=== PATIENT | male | born 1955 | race Caucasian/White ===

== ENCOUNTER 2023-07-20 08:51 | Emergency (ER) | payer BC ==
[2023-07-20 09:32] VITALS: TEMP 97.5; BMI 28.5
[2023-07-20] MEDS ORDERED: ALPRAZolam 0.25 MG TABLET ONE (09:43)
[2023-07-20] MEDS: SODIUM CHLORIDE 500 ML IV STA (09:55)
[2023-07-20] MEDS: ALPRAZolam 0.25 MG TABLET PO ONE (09:55)
[2023-07-20 09:59] LABS: EPI CELLS 1 /uL (0-25.1); HYALINE CASTS 0 /uL (0-3.1); PH,URINE 6.5 (5.0-8.0); URINE APPEARANCE CLEAR; URINE BACTERIA 1 /uL (0-1359); URINE BILIRUBIN NEGATIVE (NEGATIVE); URINE COLOR YELLOW; URINE GLUCOSE (UA) 3+ (NEGATIVE); URINE KETONE NEGATIVE (NEGATIVE); URINE LEUK ESTERASE NEGATIVE (NEGATIVE); URINE NITRITE NEGATIVE (NEGATIVE); URINE PROTEIN 1+ (NEGATIVE); URINE RBC 13 /uL (0-23.9); URINE UROBILINOGEN 0.2 mg/dL (0.2-1.0); URINE WBC 3 /uL (0-25.8)
[2023-07-20 10:03] LABS: BASO % 1.2 % (0-2.0); EOS % 1.6 % (0-4.5); HEMATOCRIT 49.3 % (35.4-49); HEMOGLOBIN 16.6 GM/dL (11.7-16.9); LYMPH % 28.9 % (8-40); MCH 29.9 pg (25.7-33.7); MCHC 33.6 g/dl (32.0-35.9); MEAN CELL VOLUME 88.9 fl (80-96); MEAN PLT VOLUME 8.3 fl (7.5-11.1); MONO % 8.5 % (3.8-10.2); NEUT % 59.8 % (42.8-82.8); PLATELET COUNT 226 10^3/uL (134-434); RBC 5.55 M/mm3 (4.00-5.60); RDW 13.5 % (11.9-15.9); WHITE BLOOD COUNT 8.6 K/mm3 (4.0-10.0)
[2023-07-20 11:18] LABS: POTASSIUM 3.9 mmol/L (3.5-5.1)
[2023-07-20 11:20] LABS: CALCIUM 9.4 mg/dL (8.5-10.1)
[2023-07-20 11:21] LABS: ALBUMIN 3.4 g/dl (3.4-5.0)
[2023-07-20 11:24] LABS: CREATININE 1.1 mg/dL (0.55-1.3)
[2023-07-20 11:25] LABS: BILIRUBIN,TOTAL 0.6 mg/dL (0.2-1)
[2023-07-20 11:42] VITALS: BP 150/82; PULSE 75; RESP 17
== END 2023-07-20 12:55 | disposition home or self-care (01) ==
LOC: JER 08:51
PROC: 3E0337Z Introduction of Electrolytic and Water Balance Substance into Peripheral Vein, Percutaneous Approach (ICD-10-PCS; principal; 2023-07-20)
DX: I10 Essential (primary) hypertension (principal); R00.2 Palpitations
CPT/HCPCS: 36415; 80053; 81003; 84484; 85025; 93005; 93010; 99284-25